=== PATIENT | male | born 1960 | race Caucasian/White ===

== ENCOUNTER 2017-03-20 07:23 | Day surgery (SDC) | payer BC ==
[2017-03-20] VITALS (10 sets, daily range): BP systolic 123–140; BP diastolic 73–88; PULSE 60–69; TEMP 36.6–37; O2SAT 95–99; Ht 172.7 cm; Wt 94.5 kg
[~2017-03-20] VITALS: Ht 172.7 cm; Wt 94.5 kg
[~2017-03-20 07:23] MED LIST: IBUP-1050 PO
--- NOTE | 2017-03-20 09:51 | Discharge Instructions ---
Discharge Instructions Procedure Procedure Date: Mar 20, 2017. Reason for visit: Lumbar Spine Pain. Discharge Discharge Date: Mar 20, 2017. Discharge Diagnosis: Lumbago Instructions Activity Recommendations: 1 Day-May resume regular activity, 48 Hours of decreased exertion, 1 Day with no exercise/sex/sports, 1 Day with no driving/ machine use Return to School/Work: limitations (light activity x 48 hours) Recommended Home Diet: Resume Previous Diet Provider Instructions: Fluoroscopic guided lumbar puncture was performed at the L3-L4 interlaminar space. Iodinated contrast was then injected into the central canal under fluoroscopic guidance for subsequent CT myelogram. The procedure was well tolerated and without immediate complication. ACTIVITY RECOMMENDATIONS: * Rest today. * Resume regular activity in one day. MEDICATIONS: * May take Tylenol or Ibuprofen as needed for pain. DIET: * Resume previous diet. SPECIAL CARE INSTRUCTIONS: Call your doctor if: * Temperature above 101 degrees F. * Pain not relieved by pain medicine ordered. * Increased drainage or redness from incision. * Notify your doctor with any questions or concerns. Call your doctor or go to the nearest Emergency Department if you experience: * Increased chest pain or shortness of breath. FOLLOW UP VISIT: Follow-up with Referring Physician as scheduled. Allergies Coded Allergies: Carvedilol (Verified Allergy, Unknown, RASH AND HIVES, 03/20/17) Promethazine (Verified Allergy, Unknown, HYPER, 03/20/17) [place] Recommendations: Call your doctor if: * Temperature above 101 degrees * Pain not relieved by pain medicine ordered * There is increased drainage or redness from any incision * You have any unanswered questions or concerns. Your Doctors Instructions noted above were prepared by provider Rasta Rodriguez. Patient Signature Section: Patient Instructions Signature Page [place] Patient (or Guardian) Signature/Date: I have read and understand the instructions given to me by my caregivers. Caregiver/RN/Doctor Signature/Date: The above-named patient and/or guardian has received patient instructions on this date. + Original Patient Signature Page (only) stays with chart. Please make copy for patient.
[2017-03-20] MEDS ORDERED: ACETAMINOPHEN 500 MG TAB PO PRN (10:00)
--- NOTE | 2017-03-20 10:08 | DIAGNOSTIC IMAGING REPORT ---
FLUOROSCOPIC GUIDED LUMBAR PUNCTURE CLINICAL HISTORY: Lumbago. Lumbar puncture performed for CT myelogram. PROCEDURE: The risks, benefits, and alternatives to the procedure is discussed with the patient who voiced understanding. Written informed consent was obtained. The patient was placed prone on the fluoroscopy table. The lower back was prepped and draped in the usual sterile fashion. 1% lidocaine was used for local anesthesia. A 22-gauge spinal needle was inserted into the L3-L4 interlaminar space, and intrathecal positioning was confirmed by return of cerebrospinal fluid into the needle hub. Approximately 15 cc of Isovue-200 was then injected into the thecal sac under fluoroscopic guidance. The patient tolerated the procedure well. There were no immediate complications. The patient was then transported to CT for CT myelogram and observed in the medical treatment unit prior to discharge. Fluoroscopy time: 0.4 minutes. IMPRESSION: Fluoroscopic guided lumbar puncture with intrathecal injection of iodinated contrast for CT myelogram. There were no immediate complications. Electronically signed by: Rasta Rodriguez M.D. 03/20/2017 10:06 AM Dictated Date/Time: 03/20/2017 10:05 AM
--- NOTE | 2017-03-20 10:45 | DIAGNOSTIC IMAGING REPORT ---
CT MYELOGRAM OF THE LUMBAR SPINE CLINICAL HISTORY: Lumbago. COMPARISON STUDY: No priors. TECHNIQUE: Following the intrathecal administration of iodinated contrast, CT myelogram of the lumbar spine is performed from the lower thoracic spine to the sacrum. Images are reviewed in the axial, sagittal, and coronal planes. A dose lowering technique was utilized adhering to the principles of ALARA. CT DOSE: 626.95 mGy/cm FINDINGS: Lumbar spine: The skeletal structures are well mineralized for age. Vertebral body height is maintained throughout the lumbar spine. There is no evidence of fracture. There are bilateral pars defects at L5 with 12 mm of anterolisthesis at L5-S1. Alignment is otherwise preserved. No lytic or blastic lesions are seen. The transverse and spinous processes are intact. Intervertebral discs: There is advanced disc space narrowing with vacuum phenomenon seen at L5-S1. Mild narrowing is seen at L3-L4 and L4-L5. The remaining disc spaces are preserved. Spinal cord: The spinal cord is normal in morphology as seen by CT. The conus medullaris terminates at the level of L1. The nerve roots of the cauda equina are normal in morphology. T12-L1: Unremarkable. L1-L2: Unremarkable. L2-L3: Unremarkable. L3-L4: There is posterior disc bulge. There is no significant acquired compromise of the central canal at this level. The minimum AP diameter measures 12 mm. There is mild bilateral subarticular stenosis. The neural foramina are widely patent. L4-L5: There is minimal posterior disc bulge. There is no acquired compromise of the central canal. Mild bilateral subarticular stenosis is observed. Facet arthropathy causes mild right greater than left neural foraminal stenosis. L5-S1: The central canal is widely patent. The neural foramina appear narrowed secondary to anterolisthesis. Sacrum: The visualized sacrum and bony pelvis are intact. A subcentimeter bone island is incidentally noted in the right ilium. Soft tissues: The paraspinous soft tissues are within normal limits. The partially visualized retroperitoneal structures are normal in appearance but incompletely assessed. IMPRESSION: 1. There is no disc herniation or central canal stenosis identified involving the lumbar spine. 2. There are bilateral pars defects at L5 with grade 1 anterolisthesis at L5-S1 and advanced disc space narrowing at this level. 3. Mild lumbosacral spondylosis as detailed above. See discussion for irfrh-dl-bavyp analysis. 4. No destructive bony process is identified. Dictated: 03/20/2017 10:07 AM Transcribed: 03/20/2017 10:45 AM [facility] Electronically signed by: Rasta Rodriguez M.D. 03/20/2017 12:34 PM Dictated Date/Time: 03/20/2017 10:07 AM
== END 2017-03-20 13:45 | disposition home or self-care (01) ==
LOC: C.ACU 07:23
PROVIDERS: ATTEND Orthopaedic Surgery Orthopaedic Surgery of the Spine
DX: M47.816 Spondylosis without myelopathy or radiculopathy, lumbar region (principal); M43.16 Spondylolisthesis, lumbar region

== ENCOUNTER 2017-03-25 12:45 | Emergency (ER) | payer BC ==
[~2017-03-25] VITALS: Ht 172.7 cm; Wt 97.8 kg
[2017-03-25 12:47] VITALS: TEMP 36.4; Ht 172.7 cm; Wt 97.8 kg
[2017-03-25] MEDS ORDERED: MoRPHine SULFATE 10 MG/ML CARP/VIAL IV PRN (13:00)
[2017-03-25] MEDS ORDERED: ONDANSETRON INJ 2 MG/ML 2 ML VIAL IV PRN (13:00)
--- NOTE | 2017-03-25 13:13 | EMERGENCY ROOM VISIT NOTE ---
History Report prepared by Eric: Ted Gordon Under the Supervision of: Dr. Fab Duran M.D. First contact with patient: 12:50 Chief Complaint: CHEST PAIN Stated Complaint: UPPER ABD PAIN History of Present Illness The patient is a 56 year old male who presents to the Emergency Room with complaints of constant squeezing chest pain starting this morning around 0900. The patient states that he was at work on a computer when the pain started, and he states that he was having shortness of breath from the tightness, and he states that the pain does not go to his back. The patient denies any nausea or vomiting. He states that nothing makes the pain better or worse, and he has never had this before. He states that he has had a bowel movement this morning. The patient states that he has had diverticulitis in the past. He denies any cough, and he states that it does not feel like a ripping feeling. The patient states that he has a pacemaker due to having vasovagal episodes. Source of History: patient Onset: 0900 Position: chest Quality: other (squeezing) Timing: constant Associated Symptoms: + SOB, No cough, No nausea, No vomiting, No back pain Review of Systems All systems have been listed, reviewed, and are negative other than those previously mentioned. Please see Additional Medical History Sheet. Past Medical & Surgical Medical Problems: (1) Pacemaker (2) Vasovagal syncope Family History Cancer Social History Smoking Status: Never Smoker Alcohol Use: occasionally Drug Use: none Marital Status: Housing Status: lives with family Occupation Status: employed Current/Historical Medications Scheduled Ibuprofen (Advil), 200 MG PO UD Ranitidine Hcl (Zantac), 150 MG PO BID Allergies Coded Allergies: Carvedilol (Verified Allergy, Unknown, RASH AND HIVES, 03/25/17) Promethazine (Verified Allergy, Unknown, HYPER, 03/25/17) Physical Exam Vital Signs Date Time Temp Pulse Resp B/P (MAP) Pulse Ox O2 Delivery O2 Flow Rate FiO2 03/25/17 15:30 60 17 149/97 98 Room Air 03/25/17 15:00 60 14 129/83 98 Room Air 03/25/17 13:58 60 133/83 03/25/17 13:19 60 03/25/17 12:47 36.4 70 18 135/89 97 Room Air Physical Exam GENERAL: Patient appears in moderate to severe distress, and grimacing in pain. Patient awake, alert, oriented x 3. Patient follows commands. Patient does not appear toxic. Patient is adequately hydrated and well-nourished. SKIN: No erythema, pallor, cyanosis or rash HEENT: Normal head, pupils equal, reactive to light and accommodation. Ears normal. Oral cavity and posterior pharynx appear normal. Neck: Without adenopathy, no neck vein distention. LUNGS: Clear to auscultation. No wheezes, no rales, no rhonchi. HEART: No murmurs. No gallops. No rubs CHEST: Pacemaker in the left upper chest. Subxiphoid process tenderness. No masses palpated. No rebound. Questionable guarding. ABDOMEN: No masses, no rebound, no hepatomegaly or splenomegaly. BACK: No pain in the back or CVA area. EXTREMITIES: Carotid, radial, and femoral pulses are all intact, strong, and equal. No signs of trauma. No pedal or pretibial edema. No calf or thigh tenderness. NEUROLOGIC: Cranial nerves II-XII within normal limits. No gross motor sensory function deficits. Medical Decision & Procedures ER Provider Diagnostic Interpretation: Radiology results as stated below per my review and radiologist interpretation: CHEST ONE VIEW PORTABLE CLINICAL HISTORY: Subxiphoid chest pain. Abdominal pain. COMPARISON STUDY: 06/28/2014 FINDINGS: The cardiac and mediastinal contours are normal. There is no evidence of focal pulmonary consolidation. There is no evidence of failure. No pleural effusions are visualized.[ There is a dual-chamber left subclavian central venous pacemaker. There is no free intraperitoneal air. IMPRESSION: No active disease in the chest. Electronically signed by: Keaton Quiroz M.D. 03/25/2017 1:41 PM Dictated Date/Time: 03/25/2017 1:40 PM Laboratory Results 03/25/17 14:35 Red Blood Count 5.39, Mean Corpuscular Volume 85.5, Mean Corpuscular Hemoglobin 28.8, Mean Corpuscular Hemoglobin Concent 33.6, Mean Platelet Volume 10.6, Neutrophils (%) (Auto) 58.5, Lymphocytes (%) (Auto) 31.7, Monocytes (%) (Auto) 7.0, Eosinophils (%) (Auto) 1.0, Basophils (%) (Auto) 0.1, Neutrophils # (Auto) 6.57, Lymphocytes # (Auto) 3.56, Monocytes # (Auto) 0.78, Eosinophils # (Auto) 0.11, Basophils # (Auto) 0.01 03/25/17 13:00 Test 03/25/17 13:00 03/25/17 14:07 03/25/17 14:35 Anion Gap 6.0 mmol/L (3-11) Est Creatinine Clear Calc Drug Dose 71.1 ml/min Estimated GFR () 70.2 Estimated GFR (Non- 60.6 BUN/Creatinine Ratio 24.1 (10-20) Calcium Level 9.3 mg/dl (8.5-10.1) Total Bilirubin 0.7 mg/dl (0.2-1) Aspartate Amino Transf (AST/SGOT) 17 U/L (15-37) Alanine Aminotransferase (ALT/SGPT) 27 U/L (12-78) Alkaline Phosphatase 91 U/L (45-117) Troponin I < 0.015 ng/ml (0-0.045) Total Protein 7.5 gm/dl (6.4-8.2) Albumin 3.8 gm/dl (3.4-5.0) Globulin 3.7 gm/dl (2.5-4.0) Albumin/Globulin Ratio 1.0 (0.9-2) Lipase 104 U/L (73-393) Urine Color YELLOW Urine Appearance CLEAR (CLEAR) Urine pH 5.0 (4.5-7.5) Urine Specific [place] 1.028 (1.000-1.030) Urine Protein NEG (NEG) Urine Glucose (UA) NEG (NEG) Urine Ketones NEG (NEG) Urine Occult Blood NEG (NEG) Urine Nitrite NEG (NEG) Urine Bilirubin NEG (NEG) Urine Urobilinogen NEG (NEG) Urine Leukocyte Esterase NEG (NEG) White Blood Count 11.22 K/uL (4.8-10.8) Red Blood Count 5.39 M/uL (4.7-6.1) Hemoglobin 15.5 g/dL (14.0-18.0) Hematocrit 46.1 % (42-52) Mean Corpuscular Volume 85.5 fL (80-100) Mean Corpuscular Hemoglobin 28.8 pg (25-34) Mean Corpuscular Hemoglobin Concent 33.6 g/dl (32-36) Platelet Count 220 K/uL (130-400) Mean Platelet Volume 10.6 fL (7.4-10.4) Neutrophils (%) (Auto) 58.5 % Lymphocytes (%) (Auto) 31.7 % Monocytes (%) (Auto) 7.0 % Eosinophils (%) (Auto) 1.0 % Basophils (%) (Auto) 0.1 % Neutrophils # (Auto) 6.57 K/uL (1.4-6.5) Lymphocytes # (Auto) 3.56 K/uL (1.2-3.4) Monocytes # (Auto) 0.78 K/uL (0.11-0.59) Eosinophils # (Auto) 0.11 K/uL (0-0.5) Basophils # (Auto) 0.01 K/uL (0-0.2) RDW Standard Deviation 44.6 fL (36.4-46.3) RDW Coefficient of Variation 14.3 % (11.5-14.5) Immature Granulocyte % (Auto) 1.7 % Immature Granulocyte # (Auto) 0.19 K/uL (0.00-0.02) Laboratory results as stated above per my review. Medications Administered Medications (Trade) Dose Ordered Sig/Gerald Route Start Time Stop Time Status Last Admin Dose Admin Morphine Sulfate (MoRPHine SULFATE INJ) 8 mg Q1H PRN IV 03/25/17 13:00 03/25/17 16:07 DC 03/25/17 13:13 8 MG Ondansetron HCl (Zofran Inj) 4 mg Q1HWA PRN IV 03/25/17 13:00 03/25/17 16:07 DC 03/25/17 13:12 4 MG Al Hydrox/Mg Hydrox/Simethicone (Maalox Max Susp) 30 ml NOW STAT PO 03/25/17 14:12 03/25/17 14:13 DC 03/25/17 14:18 30 ML Lidocaine HCl (Viscous Lidocaine 2% Soln) 10 ml NOW ONCE MT 03/25/17 14:15 03/25/17 14:16 DC 03/25/17 14:18 10 ML ECG Indication: chest pain Rate (beats per minute): 60 Rhythm: other (Atrial paced) Findings: paced rhythm, no ectopy, other (No ST changes) ED Course 1250: Past medical records reviewed. The patient was evaluated in room B4. A complete history and physical examination was performed. 1300: Zofran Inj 4mg IV, Morphine Sulfate 8mg IV 1410: I reevaluated the patient, and he states that he is feeling significantly better. 1412: Maalox Max Susp 30ml PO 1415: Viscous Lidocaine 2% Soln 10ml MT 1504: Upon reevaluation, the patient appeared to have improvement of his symptoms. I discussed today's findings with his. He verbalized agreement of the treatment plan. He was discharged home. Medical Decision Nurses notes reviewed. Medical history sheet reviewed. Differential diagnosis includes but is not limited to: Acute gastroenteritis, peptic/ulcer disease, Boerhaave's syndrome, gastritis, esophageal spasm, and pancreatitis. The patient arrives here with severe epigastric/subxiphoid pain. The patient does have a prior history of some GERD and was on Prilosec but has not been taking that regularly. Multiple labs, EKG and imaging were obtained. The patient's EKG did not reveal an acute finding nor did he have an elevated troponin. Chest x-ray does not reveal any acute findings. Patient improved with IV morphine initially and then later with lidocaine/Mylanta. The patient has no evidence of an aortic emergencies. I believe the patient has esophagitis /esophageal spasm. The patient was encouraged to take 150 mg of Zantac twice a day. The patient may need endoscopy in the future. Medication Reconcilliation Current Medication List: was personally reviewed by me Blood Pressure Screening Patient's blood pressure: Normal blood pressure Impression Primary Impression: Esophageal spasm Additional Impression: GERD (gastroesophageal reflux disease) Scribe Attestation The scribe's documentation has been prepared under my direction and personally reviewed by me in its entirety. I confirm that the note above accurately reflects all work, treatment, procedures, and medical decision making performed by me. Departure Information Dispostion Home / Self-Care Prescriptions Ranitidine Hcl (ZANTAC) 150 Mg Tab 150 MG PO BID, #60 TAB Prov: Fab Duran M.D. 03/25/17 Referrals No Doctor, Assigned (PCP) Forms HOME CARE DOCUMENTATION FORM, IMPORTANT VISIT INFORMATION Patient Instructions My [facility] Additional Instructions 150 mg of Zantac twice a day. Prescription sent to [facility] Follow-up with your family physician within the next 2 weeks. You may require endoscopy if symptoms are not improving. You may also use 1 tablespoon of Mylanta 2 or Maalox plus every 4-6 hours as needed for symptomatic relief of GERD Problem Qualifiers
--- NOTE | 2017-03-25 13:42 | DIAGNOSTIC IMAGING REPORT ---
CHEST ONE VIEW PORTABLE CLINICAL HISTORY: Subxiphoid chest pain. Abdominal pain. COMPARISON STUDY: 06/28/2014 FINDINGS: The cardiac and mediastinal contours are normal. There is no evidence of focal pulmonary consolidation. There is no evidence of failure. No pleural effusions are visualized.[ There is a dual-chamber left subclavian central venous pacemaker. There is no free intraperitoneal air. IMPRESSION: No active disease in the chest. Electronically signed by: Keaton Quiroz M.D. 03/25/2017 1:41 PM Dictated Date/Time: 03/25/2017 1:40 PM
[2017-03-25 13:48] LABS: ALKALINE PHOSPHATASE 91 U/L (45-117)
[2017-03-25 13:52] LABS: POTASSIUM 3.7 mmol/L (3.5-5.1); SODIUM 139 mmol/L (136-145)
[2017-03-25 13:57] LABS: AST/SGOT 17 U/L (15-37)
[2017-03-25 13:59] LABS: ALT/SGPT 27 U/L (12-78); BLOOD UREA NITROGEN 31 mg/dl (7-18); BUN/CREATININE RATIO 24.1 (10-20); CALCIUM 9.3 mg/dl (8.5-10.1); CARBON DIOXIDE 30 mmol/L (21-32); CHLORIDE 103 mmol/L (98-107); GLUCOSE 98 mg/dl (70-99)
[2017-03-25] MEDS ORDERED: ALUMINUM/MAGNESIUM/SIMETH (MAALOX MAX) 30 ML UDC PO STA (14:12)
[2017-03-25] MEDS ORDERED: LIDOCAINE HCL 2% VISC SOLN 20 ML UDC MT ONE (14:15)
[2017-03-25 14:23] LABS: URINE APPEARANCE CLEAR (CLEAR); URINE BILIRUBIN NEG (NEG); URINE COLOR YELLOW; URINE NITRITE NEG (NEG); URINE SPECIFIC GRAVITY 1.028 (1.000-1.030); UROBILINOGEN NEG (NEG); ZZUR CULT IF INDIC CLEAN CATCH NO
[2017-03-25 14:24] LABS: MANUAL MICROSCOPIC REQUIRED? NO; REVIEW REQ? NO
[2017-03-25 14:52] LABS: BASO % 0.1 %; BASO ABS # 0.01 K/uL (0-0.2); COMPLETE YES; HEMATOCRIT 46.1 % (42-52); IG% 1.7 %; LYMPH % 31.7 %; LYMPH ABS # 3.56 K/uL (1.2-3.4); MEAN CELL VOLUME 85.5 fL (80-100); MEAN CORPUSCULAR HEMOGLOBIN 28.8 pg (25-34); MEAN CORPUSCULAR HGB CONC 33.6 g/dl (32-36); MEAN PLATELET VOLUME 10.6 fL (7.4-10.4); NEUT % 58.5 %; PLATELET COUNT 220 K/uL (130-400); RED BLOOD COUNT 5.39 M/uL (4.7-6.1); WHITE BLOOD COUNT 11.22 K/uL (4.8-10.8)
[2017-03-25] MEDS ORDERED: RANI150T3 PO (15:23)
[2017-03-25 15:30] VITALS: BP 149/97; PULSE 60; O2SAT 98
== END 2017-03-25 15:41 | disposition home or self-care (01) ==
LOC: C.EDB 12:46
DX: K22.4 Dyskinesia of esophagus (principal); K21.9 Gastro-esophageal reflux disease without esophagitis; R06.02 Shortness of breath; Z95.0 Presence of cardiac pacemaker; Z79.899 Other long term (current) drug therapy